=== PATIENT | female | born 1985 | race Caucasian/White ===

== ENCOUNTER 2017-06-02 11:29 | Emergency (ER) | payer BC ==
[~2017-06-02] VITALS: Ht 162.6 cm; Wt 112.3 kg
[~2017-06-02 11:29] MED LIST: Z.0.NO CURRENT MEDS
[2017-06-02 11:51] VITALS: BP 155/91; PULSE 101; RESP 16; TEMP 98.6; O2SAT 98
[2017-06-02] MEDS ORDERED: SODIUM CHLOR 0.9% 1000 ML INJ 1,000 ML IV ONE (14:09)
[2017-06-02] MEDS ORDERED: LOPE-1 PO (14:12)
[2017-06-02] MEDS ORDERED: AMLO5TAB2 PO (14:12)
[2017-06-02] MEDS ORDERED: SODIUM CHLORIDE 0.9% FLUSH 10 ML FLUSH IVF PRN (14:15)
[2017-06-02] MEDS ORDERED: DICYCLOMINE HCL 20 MG/2 ML VIAL IM ONE (14:15)
[2017-06-02] MEDS ORDERED: ONDANSETRON HCL 4 MG/2 ML VIAL IV PUSH ONE (14:15)
[2017-06-02 14:21] VITALS: BP 147/97; PULSE 91; RESP 18; O2SAT 97
--- NOTE | 2017-06-02 14:21 | PD ---
HPI Chief Complaint: Abdominal Pain Time Seen by Provider: 14:00 Travel History International Travel<30 days: No Contact w/Intl Traveler<30days: No Traveled to known affect area: No History of Present Illness HPI The patient is a 31-year-old female who presents to the emergency department for 1 month of diarrhea. The patient's symptoms started 1 month ago while she was [place] [employer]. She developed diarrhea which she describes as loose , watery, brown, without any visible blood. She has up to 10 episodes of diarrhea per day. She does complain of intermittent nausea but denies any vomiting. She does have a history of previous cholecystectomy. The patient states her symptoms worsened today and she called her primary physician's office , Dr. Megan Araya, was referred to the emergency department because her physician is out of town. The patient did call her physician 2 weeks ago, was advised to take [id number] medications as needed, however, she continues to have symptoms. She did have a temperature 99.4 earlier today. She denies any history C. difficile. She denies any history of recent international travel or drinking well water. There are no family members at home with similar symptoms. She denies any history of IBD, Crohn's, ulcerative colitis, or IBS. The patient did take an Imodium yesterday, said no bowel movement since then, but had increasing pain. PFSH Past Medical History Cardiovascular Problems: Yes (htn on meds) Diminished Hearing: No GERD: Yes Hypertension: Yes Influenza Vaccination: Yes ?: Not LMP: no menses has IUD Past Surgical History Cholecystectomy: Yes Tonsillectomy: Yes Social History Alcohol Use: No Tobacco Use: No Allergies-Medications (Allergen,Severity, Reaction): Coded Allergies: gemifloxacin (Verified Allergy, Intermediate, 06/02/17) Reported Meds & Prescriptions Reported Meds & Active Scripts Active Flagyl (Metronidazole) 500 Mg Tab 500 Mg PO TID 7 Days Reported Imodium A-D (Loperamide HCl) 2 Mg Capsule 2 Mg PO DIRECTED PRN One capsule after each loose stool. Not to exceed 8 tablets per day. Amlodipine (Amlodipine Besylate) 5 Mg Tab 5 Mg PO HS Review of Systems Except as stated in HPI: all other systems reviewed are Neg General / Constitutional: Positive: Fever HENT: No: Lightheadedness Cardiovascular: No: Chest Pain or Discomfort Respiratory: No: Shortness of Breath Gastrointestinal: Positive: Nausea, Diarrhea, Abdominal Pain, No: Vomiting Genitourinary: No: Dysuria, Decreased Urinary Output Musculoskeletal: No: Myalgias Skin: No Rash Physical Exam Narrative GENERAL: Awake, alert, pleasant 31-year-old female who appears her stated age and is in no acute respiratory distress. SKIN: Focused skin assessment warm/dry. HEAD: Atraumatic. Normocephalic. EYES: Pupils equal and round. No scleral icterus. No injection or drainage. ENT: No nasal bleeding or discharge. Mu slightly dry mucous membranes. NECK: Trachea midline. No JVD. CARDIOVASCULAR: Regular rate and rhythm. No murmur appreciated. RESPIRATORY: No accessory muscle use. Clear to auscultation. Breath sounds equal bilaterally. GASTROINTESTINAL: Abdomen soft, mild tenderness right lower quadrant and left upper quadrant. Laparoscopic scars noted. Back: Mild tenderness of the right CVA. MUSCULOSKELETAL: No obvious deformities. No clubbing. No cyanosis. No edema. NEUROLOGICAL: Awake and alert. No obvious cranial nerve deficits. Motor grossly within normal limits. Normal speech. PSYCHIATRIC: Appropriate mood and affect; insight and judgment normal. Data Data Last Documented VS Vital Signs Date Time Temp Pulse Resp B/P (MAP) Pulse Ox O2 Delivery O2 Flow Rate FiO2 06/02/17 17:02 88 18 145/88 (107) 99 06/02/17 14:21 Room Air 06/02/17 11:51 98.6 Orders Orders Complete Blood Count With Diff (06/02/17 14:09) Comprehensive Metabolic Panel (06/02/17 14:09) Urinalysis - C+S If Indicated (06/02/17 14:09) Lipase (06/02/17 14:09) Ct Abd/Pel W Iv Contrast(Rout) (06/02/17 ) Iv Access Insert/Monitor (06/02/17 14:09) Ecg Monitoring (06/02/17 14:09) Oximetry (06/02/17 14:09) Ondansetron Inj (Zofran Inj) (06/02/17 14:15) Sodium Chlor 0.9% 1000 Ml Inj (Ns 1000 M (06/02/17 14:09) Sodium Chloride 0.9% Flush (Ns Flush) (06/02/17 14:15) Ed Urine Pregnancytest Poc (06/02/17 14:09) Dicyclomine Inj (Bentyl Inj) (06/02/17 14:15) Diatrizoate Liq ( Gastroview Liq) (06/02/17 14:24) Iohexol 350 Inj (Omnipaque 350 Inj) (06/02/17 16:04) Ed Discharge Order (06/02/17 17:02) Labs Laboratory Tests Test 06/02/17 14:15 White Blood Count 7.0 TH/MM3 Red Blood Count 4.61 MIL/MM3 Hemoglobin 12.9 GM/DL Hematocrit 38.1 % Mean Corpuscular Volume 82.7 FL Mean Corpuscular Hemoglobin 28.1 PG Mean Corpuscular Hemoglobin Concent 33.9 % Red Cell Distribution Width 12.8 % Platelet Count 255 TH/MM3 Mean Platelet Volume 7.3 FL Neutrophils (%) (Auto) 58.3 % Lymphocytes (%) (Auto) 30.3 % Monocytes (%) (Auto) 10.0 % Eosinophils (%) (Auto) 0.9 % Basophils (%) (Auto) 0.5 % Neutrophils # (Auto) 4.1 TH/MM3 Lymphocytes # (Auto) 2.1 TH/MM3 Monocytes # (Auto) 0.7 TH/MM3 Eosinophils # (Auto) 0.1 TH/MM3 Basophils # (Auto) 0.0 TH/MM3 CBC Comment DIFF FINAL Differential Comment Urine Color YELLOW Urine Turbidity CLEAR Urine pH 6.0 Urine Specific Sully 1.015 Urine Protein NEG mg/dL Urine Glucose (UA) NEG mg/dL Urine Ketones NEG mg/dL Urine Occult Blood SMALL Urine Nitrite NEG Urine Bilirubin NEG Urine Urobilinogen 0.2 MG/DL Urine Leukocyte Esterase NEG Urine RBC 0-3 /hpf Urine WBC 0-2 /hpf Urine Squamous Epithelial Cells 0-5 /hpf Urine Mucus FEW /lpf Microscopic Urinalysis Comment CULT NOT INDICATED Blood Urea Nitrogen 6 MG/DL Creatinine 0.51 MG/DL Random Glucose 93 MG/DL Total Protein 7.9 GM/DL Albumin 3.6 GM/DL Calcium Level 8.0 MG/DL Alkaline Phosphatase 109 U/L Aspartate Amino Transf (AST/SGOT) 11 U/L Alanine Aminotransferase (ALT/SGPT) 14 U/L Total Bilirubin 0.5 MG/DL Sodium Level 137 MEQ/L Potassium Level 3.4 MEQ/L Chloride Level 103 MEQ/L Carbon Dioxide Level 27.3 MEQ/L Anion Gap 7 MEQ/L Estimat Glomerular Filtration Rate 140 ML/MIN Lipase 75 U/L [facility] Medical Decision Making Medical Screen Exam Complete: Yes Emergency Medical Condition: Yes Medical Record Reviewed: Yes Interpretation(s) Laboratory Tests Test 06/02/17 14:15 White Blood Count 7.0 TH/MM3 Red Blood Count 4.61 MIL/MM3 Hemoglobin 12.9 GM/DL Hematocrit 38.1 % Mean Corpuscular Volume 82.7 FL Mean Corpuscular Hemoglobin 28.1 PG Mean Corpuscular Hemoglobin Concent 33.9 % Red Cell Distribution Width 12.8 % Platelet Count 255 TH/MM3 Mean Platelet Volume 7.3 FL Neutrophils (%) (Auto) 58.3 % Lymphocytes (%) (Auto) 30.3 % Monocytes (%) (Auto) 10.0 % Eosinophils (%) (Auto) 0.9 % Basophils (%) (Auto) 0.5 % Neutrophils # (Auto) 4.1 TH/MM3 Lymphocytes # (Auto) 2.1 TH/MM3 Monocytes # (Auto) 0.7 TH/MM3 Eosinophils # (Auto) 0.1 TH/MM3 Basophils # (Auto) 0.0 TH/MM3 CBC Comment DIFF FINAL Differential Comment Urine Color YELLOW Urine Turbidity CLEAR Urine pH 6.0 Urine Specific Sully 1.015 Urine Protein NEG mg/dL Urine Glucose (UA) NEG mg/dL Urine Ketones NEG mg/dL Urine Occult Blood SMALL Urine Nitrite NEG Urine Bilirubin NEG Urine Urobilinogen 0.2 MG/DL Urine Leukocyte Esterase NEG Urine RBC 0-3 /hpf Urine WBC 0-2 /hpf Urine Squamous Epithelial Cells 0-5 /hpf Urine Mucus FEW /lpf Microscopic Urinalysis Comment CULT NOT INDICATED Blood Urea Nitrogen 6 MG/DL Creatinine 0.51 MG/DL Random Glucose 93 MG/DL Total Protein 7.9 GM/DL Albumin 3.6 GM/DL Calcium Level 8.0 MG/DL Alkaline Phosphatase 109 U/L Aspartate Amino Transf (AST/SGOT) 11 U/L Alanine Aminotransferase (ALT/SGPT) 14 U/L Total Bilirubin 0.5 MG/DL Sodium Level 137 MEQ/L Potassium Level 3.4 MEQ/L Chloride Level 103 MEQ/L Carbon Dioxide Level 27.3 MEQ/L Anion Gap 7 MEQ/L Estimat Glomerular Filtration Rate 140 ML/MIN Lipase 75 U/L Differential Diagnosis Differential diagnosis includes gastritis, enteritis, colitis, C. difficile, infectious diarrhea, inflammatory diarrhea, pancreatitis, ulcerative colitis, Crohn's disease, malabsorption, food allergy. Narrative Course IV was established, labs are drawn and sent, the patient was placed on cardiac telemetry monitoring and continuous pulse oximetry monitoring. CT of the abdomen and pelvis with oral and IV contrast was ordered. The patient was administered Zofran, Bentyl, and IV fluids. C. difficile and stool culture were ordered. Laboratory evaluation is unremarkable. The patient was signed out of [address] the abdomen and pelvis pending for possible colitis. Diagnosis Primary Impression: Diarrhea Qualified Codes: R19.7 - Diarrhea, unspecified Scripts Metronidazole (Flagyl) 500 Mg Tab 500 MG PO TID for Infection for 7 Days, TAB 0 Refills Prov: Maria Esther Mejia MD 06/02/17 Condition: Stable Chris Farmer MD Jun 02, 2017 14:21
[2017-06-02] MEDS ORDERED: DIATRIZOATE MEGLUM/DIATRIZOATE SOD 9 ML CUP ONE (14:24)
[2017-06-02 14:33] LABS: AUTOMATED NEUTROPHIL # 4.1 TH/MM3 (1.8-7.7); BASOPHIL % 0.5 % (0.0-2.0); EOSINOPHIL # 0.1 TH/MM3 (0-0.4); EOSINOPHIL % 0.9 % (0.0-4.0); HEMATOCRIT 38.1 % (35.0-46.0); HEMOGLOBIN 12.9 GM/DL (11.6-15.3); LYMPH % 30.3 % (9.0-44.0); LYMPHOCYTE # 2.1 TH/MM3 (1.0-4.8); MEAN CELL VOLUME 82.7 FL (80.0-100.0); MEAN CORPUSCULAR HEMOGLOBIN 28.1 PG (27.0-34.0); MEAN CORPUSCULAR HGB CONC 33.9 % (32.0-36.0); MEAN PLATELET VOLUME 7.3 FL (7.0-11.0); MONOCYTE # 0.7 TH/MM3 (0-0.9); NEUT % 58.3 % (16.0-70.0); PLATELET COUNT 255 TH/MM3 (150-450); RED BLOOD COUNT 4.61 MIL/MM3 (4.00-5.30); RED CELL DISTRIBUTION WIDTH 12.8 % (11.6-17.2)
[2017-06-02 14:44] LABS: BILIRUBIN, URINE NEG (NEG); BLOOD, URINE SMALL (NEG); GLUCOSE,URINE NEG (NEG); KETONE, URINE NEG (NEG); NITRITE,URINE NEG (NEG); URINE COLOR YELLOW (YELLW/STRAW); URINE LEUKOCYTE ESTERASE NEG (NEG)
[2017-06-02 14:45] LABS: CHLORIDE 103 MEQ/L (98-107); SODIUM (NA) 137 MEQ/L (136-145)
[2017-06-02 14:49] LABS: ALBUMIN 3.6 GM/DL (3.4-5.0); BICARBONATE 27.3 MEQ/L (21.0-32.0); BLOOD UREA NITROGEN 6 MG/DL (7-18); GLUCOSE,RANDOM 93 MG/DL (74-106)
[2017-06-02 14:52] LABS: ALT (GPT) 14 U/L (10-53); AST (GOT) 11 U/L (15-37); CREATININE 0.51 MG/DL (0.50-1.00); GLOMERULAR FILTRATION RATE 140 ML/MIN (>89); MUCUS URINE FEW /lpf (OCC); RBC, URINE 0-3 /hpf (0-3); SQUAMOUS EPITHELIAL CELL URINE 0-5 /hpf (0-5); WBC, URINE 0-2 /hpf (0-5)
[2017-06-02 14:54] LABS: TOTAL BILIRUBIN ADULT 0.5 MG/DL (0.2-1.0); TOTAL PROTEIN 7.9 GM/DL (6.4-8.2)
[2017-06-02 14:55] LABS: ALKALINE PHOSPHATASE 109 U/L (45-117)
[2017-06-02] MEDS ORDERED: IOHEXOL 350 MG/ML 10 ML VIAL (for RAD DIAG) IVCONTRAST ONE (16:04)
--- NOTE | 2017-06-02 16:09 | RADRPT ---
EXAM DATE/TIME: 06/02/2017 15:42 [facility] COMPARISON: No previous studies available for comparison. INDICATIONS : Mid abdominal and right flank pain x 1 day. Diarrhea x 1 month. IV CONTRAST: 85 cc Omnipaque 350 (iohexol) IV ORAL CONTRAST: Prescribed oral contrast ingested. RADIATION DOSE: 21.92 CTDIvol (mGy) MEDICAL HISTORY : Gastroesophageal reflux disease. Hypertension. SURGICAL HISTORY : Cholecystectomy. Hysterectomy. ENCOUNTER: Initial ACUITY: 1 month PAIN SCALE: 10/10 LOCATION: Right flank Mid abdomen. TECHNIQUE: Volumetric scanning of the abdomen and pelvis was performed. Using automated exposure control and ad justment of the mA and/or kV according to patient size, radiation dose was kept as low as reasonably achievable to obtain optimal diagnostic quality images. DICOM format image data is available electro nically for review and comparison. FINDINGS: LOWER LUNGS: The visualized lower lungs are clear. LIVER: Homogeneous density without lesion. There is no dilation of the biliary tree. No calcified gallston es. SPLEEN: Normal size without lesion. PANCREAS: Within normal limits. KIDNEYS: Normal in size and shape. There is no mass, stone or hydronephrosis. ADRENAL GLANDS: Within normal limits. VASCULAR: There is no aortic aneurysm. BOWEL/MESENTERY: The stomach, small bowel, and colon demonstrate no acute abnormality. There is no free intraperitone al air or fluid. ABDOMINAL WALL: Within normal limits. RETROPERITONEUM: There is no lymphadenopathy. BLADDER: No wall thickening or mass. REPRODUCTIVE: The examination demonstrates a 3.2 x 4 cm cyst in the right ovary. Incidental load is made of an IUD. INGUINAL: There is no lymphadenopathy or hernia. MUSCULOSKELETAL: Within normal limits for patient age. CONCLUSION: 1. 3.1 x 4 cm right ovarian cyst. 2. The examination is otherwise within normal limits. Eliecer López MD on June 02, 2017 at 16:04 Board Certified Radiologist. This report was verified electronically.
[2017-06-02 17:02] VITALS: BP 145/88
[2017-06-02] MEDS ORDERED: METR-1 PO (17:02)
--- NOTE | 2017-06-02 17:02 | PD ---
Physical Exam Narrative Patient signed out to me by Dr. Farmer. Please see his documentation for complete details. Briefly, patient is a 31-year-old female who comes in with a month of diarrhea, mostly after she eats. She took some Imodium yesterday and started to experience severe pain in her abdomen today. Exam shows mild tenderness across the lower abdomen. There is no rebound or guarding. Data Data Last Documented VS Vital Signs Date Time Temp Pulse Resp B/P (MAP) Pulse Ox O2 Delivery O2 Flow Rate FiO2 06/02/17 14:21 91 18 147/97 (114) 97 Room Air 06/02/17 11:51 98.6 Orders Orders Complete Blood Count With Diff (06/02/17 14:09) Comprehensive Metabolic Panel (06/02/17 14:09) Urinalysis - C+S If Indicated (06/02/17 14:09) Lipase (06/02/17 14:09) Ct Abd/Pel W Iv Contrast(Rout) (06/02/17 ) Iv Access Insert/Monitor (06/02/17 14:09) Ecg Monitoring (06/02/17 14:09) Oximetry (06/02/17 14:09) Ondansetron Inj (Zofran Inj) (06/02/17 14:15) Sodium Chlor 0.9% 1000 Ml Inj (Ns 1000 M (06/02/17 14:09) Sodium Chloride 0.9% Flush (Ns Flush) (06/02/17 14:15) C Diff Toxin Pcr (06/02/17 14:09) Enteric Path (Stool) (06/02/17 14:09) Ed Urine Pregnancytest Poc (06/02/17 14:09) Dicyclomine Inj (Bentyl Inj) (06/02/17 14:15) Diatrizoate Liq ( Gastroview Liq) (06/02/17 14:24) Iohexol 350 Inj (Omnipaque 350 Inj) (06/02/17 16:04) Labs Laboratory Tests Test 06/02/17 14:15 White Blood Count 7.0 TH/MM3 Red Blood Count 4.61 MIL/MM3 Hemoglobin 12.9 GM/DL Hematocrit 38.1 % Mean Corpuscular Volume 82.7 FL Mean Corpuscular Hemoglobin 28.1 PG Mean Corpuscular Hemoglobin Concent 33.9 % Red Cell Distribution Width 12.8 % Platelet Count 255 TH/MM3 Mean Platelet Volume 7.3 FL Neutrophils (%) (Auto) 58.3 % Lymphocytes (%) (Auto) 30.3 % Monocytes (%) (Auto) 10.0 % Eosinophils (%) (Auto) 0.9 % Basophils (%) (Auto) 0.5 % Neutrophils # (Auto) 4.1 TH/MM3 Lymphocytes # (Auto) 2.1 TH/MM3 Monocytes # (Auto) 0.7 TH/MM3 Eosinophils # (Auto) 0.1 TH/MM3 Basophils # (Auto) 0.0 TH/MM3 CBC Comment DIFF FINAL Differential Comment Urine Color YELLOW Urine Turbidity CLEAR Urine pH 6.0 Urine Specific [place] 1.015 Urine Protein NEG mg/dL Urine Glucose (UA) NEG mg/dL Urine Ketones NEG mg/dL Urine Occult Blood SMALL Urine Nitrite NEG Urine Bilirubin NEG Urine Urobilinogen 0.2 MG/DL Urine Leukocyte Esterase NEG Urine RBC 0-3 /hpf Urine WBC 0-2 /hpf Urine Squamous Epithelial Cells 0-5 /hpf Urine Mucus FEW /lpf Microscopic Urinalysis Comment CULT NOT INDICATED Blood Urea Nitrogen 6 MG/DL Creatinine 0.51 MG/DL Random Glucose 93 MG/DL Total Protein 7.9 GM/DL Albumin 3.6 GM/DL Calcium Level 8.0 MG/DL Alkaline Phosphatase 109 U/L Aspartate Amino Transf (AST/SGOT) 11 U/L Alanine Aminotransferase (ALT/SGPT) 14 U/L Total Bilirubin 0.5 MG/DL Sodium Level 137 MEQ/L Potassium Level 3.4 MEQ/L Chloride Level 103 MEQ/L Carbon Dioxide Level 27.3 MEQ/L Anion Gap 7 MEQ/L Estimat Glomerular Filtration Rate 140 ML/MIN Lipase 75 U/L [facility] Supervised Visit with CHITO: No Narrative Course Labs show no acute abnormalities. Kidney function is within normal limits. White blood cell count is within normal limits. Patient has not had another episode of diarrhea while she has been here, has not been able to provide a stool sample. CT of her abdomen and pelvis shows an ovarian cyst, no other acute abnormalities. Last 24 hours Impressions Abdomen/Pelvis CT 06/02/17 0000 Signed Impressions: Service Date/Time: May 15:42 - CONCLUSION: 1. 3.1 x 4 cm right ovarian cyst. 2. The examination is otherwise within normal limits. Eliecer López MD Patient informed of these results. 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 She is advised to try probiotics or eating yogurt. She will be given a prescription for Flagyl to treat for possible infectious cause of the diarrhea. She is advised to avoid any alcohol while taking this medication. Advised follow-up with her doctor. Advised return to the ED as needed for any worsening symptoms. Diagnosis Primary Impression: Diarrhea Qualified Codes: R19.7 - Diarrhea, unspecified Additional Impression: Ovarian cyst Qualified Codes: N83.201 - Unspecified ovarian cyst, right side Patient Instructions: Acute Diarrhea (ED), General Instructions, Ovarian Cyst ( ED) Additional Instruction: Follow-up with your maintenance machinist regarding her ovarian cyst. Make sure you drink plenty of fluids. Take all of the antibiotic. Make sure you do not drink any alcohol while taking this antibiotic as you will become violently ill. Return to the ED as needed for any worsening symptoms. Scripts Metronidazole (Flagyl) 500 Mg Tab 500 MG PO TID for Infection for 7 Days, TAB 0 Refills Prov: Maria Esther Mejia MD 06/02/17 Disposition: DISCHARGE HOME Condition: Stable Maria Esther Mejia MD Jun 02, 2017 17:02
== END 2017-06-02 17:06 | disposition home or self-care (01) ==
LOC: PHED 11:29
DX: R19.7 Diarrhea, unspecified (principal); N83.201 Unspecified ovarian cyst, right side; R10.9 Unspecified abdominal pain; R50.9 Fever, unspecified; R11.0 Nausea; I10 Essential (primary) hypertension
CPT/HCPCS: 74177; 80053; 81001; 83690; 84703; 85025; 96361; 96372; 96374; 99285; J0500; J2405; J7030; Q9963; Q9967